=== PATIENT | male | born 1935 | race Caucasian/White ===

== ENCOUNTER 2025-02-22 12:53 | Inpatient (IN) | payer OTHER, MEDICARE ==
[~2025-02-22] VITALS: Ht 182.9 cm; Wt 78.9 kg
[2025-02-22] VITALS (12 sets, daily range): BP systolic 91–174; BP diastolic 60–91
[2025-02-22 13:16] LABS: Calcium, Ionized (POC) 1.01 mmol/L (1.10-1.46); Chloride (POC) 105 mmol/L (98-108); Creatinine (POC) 2.4 mg/dL (0.8-1.3); Glucose (ISTAT POC) 285 mg/dL (70-99); Hemoglobin (POC) 13.3 g/dL (13.5-17.5); Potassium (POC) 3.5 mmol/L (3.5-5.5); Sodium (POC) 141 mmol/L (135-148); Total CO2 (POC) 22 mmol/L (21-32)
[2025-02-22] MEDS ORDERED: propofoL 100 ML IV SCH (13:20)
[2025-02-22] MEDS ORDERED: FentaNYL Citrate 50 MCG/ML 2 ML Injection IV SCH (13:20)
[2025-02-22 13:28] LABS: Hematocrit 40.3 % (37.0-53.0); Hemoglobin 13.2 g/dL (13.5-17.5); Mean Corpuscular HGB Conc 32.8 g/dL (31.5-36.5); Mean Corpuscular Volume 98 fL (80-100); Mean Platelet Volume 12.9 fL (9.1-12.4); Platelet Count 168 K/mm3 (150-400); RDW Standard Deviation 46.7 fL (35.1-46.3); Red Blood Cell Count 4.12 M/mm3 (4.30-5.90); White Blood Cell Count 23.91 K/mm3 (4.00-11.30)
[2025-02-22] MEDS ORDERED: Aspirin 300 MG Supp PR ONE (13:30)
[2025-02-22] MEDS ORDERED: Heparin Sodium 1000 Units/ML 10ML MDV ONE ×2 (13:35→14:18)
[2025-02-22] MEDS ORDERED: NS 250 ML IV ONE (13:35)
[2025-02-22] MEDS ORDERED: NS 1,000 ML IV ONE ×2 (13:35→13:43)
[2025-02-22] MEDS ORDERED: Verapamil HCL 2.5 MG/ML 2ML Injection ONE (13:36)
[2025-02-22] MEDS ORDERED: Nitroglycerin 2 MG/20 ML BTL ONE (13:36)
[2025-02-22 13:43] LABS: International Normalized Ratio 1.13
[2025-02-22] MEDS ORDERED: Atropine Sulfate 0.1 MG/ML 10ML SYR ONE (13:43)
[2025-02-22] MEDS ORDERED: FentaNYL Citrate 50 MCG/ML 2 ML Injection ONE (13:43)
[2025-02-22] MEDS ORDERED: Phenylephrine HCl 100 MCG/ML-NS 10MLSYR (1MG/10ML) ONE (13:43)
[2025-02-22] MEDS ORDERED: Midazolam HCl 1MG / ML 2ML Vial ONE (13:43)
[2025-02-22 13:49] LABS: Alanine Aminotransfer (ALT/SGP 127 U/L (12-78); Albumin, Blood 3.2 g/dL (3.4-5.0); Albumin/Globulin Ratio 1.1 (0.8-1.8); Alk Phos 119 U/L (50-136); Anion Gap 19 mmol/L (3-11); Aspartate Aminotrans (AST/SGOT 139 U/L (12-37); Bilirubin, Total 0.4 mg/dL (0.1-1.0); Blood Urea Nitrogen 27 mg/dL (8-24); Bun/Creatinine Ratio 13.3 (12.0-20.0); CO2, Blood 21 mmol/L (21-32); Calcium, Blood 8.4 mg/dL (8.5-10.1); Chloride, Blood 104 mmol/L (98-108); Creatinine, Blood 2.03 mg/dL (0.60-1.20); Ethanol (Alcohol), Blood, Med <3 mg/dL; Globulin, Blood 2.9 g/dL (2.2-4.0); Glomerular Filtration Rate 31 (60-); Glucose, Blood 294 mg/dL (70-99); Potassium, Blood 3.3 mmol/L (3.5-5.5); Sodium, Blood 141 mmol/L (136-145); Total Protein, Blood 6.1 g/dL (6.4-8.2)
[2025-02-22] MEDS ORDERED: propofoL 50 ML IV ONE (13:52)
[2025-02-22 15:16] LABS: BAND PERCENT MAN 9 % (0-8); BASOPHILS ABSOLUTE MAN 0.23 K/mm3 (0.00-0.23); BASOPHILS PERCENT MAN 1 % (0-2); EOSINOPHILS PERCENT MAN 0 % (0-6); LYMPHOCYTES ABSOLUTE MAN 9.56 K/mm3 (0.84-5.20); LYMPHOCYTES PERCENT MAN 40 % (21-46); METAMYELOCYTE ABSOLUTE MAN 0.23 K/mm3 (0.00-0.00); METAMYELOCYTE PERCENT MAN 1 % (0-0); MONOCYTES ABSOLUTE MAN 0.23 K/mm3 (0.16-1.47); MONOCYTES PERCENT MAN 1 % (4-13); MYELOCYTE ABSOLUTE MAN 0.47 K/mm3 (0.00-0.00); MYELOCYTE PERCENT MAN 2 % (0-0); NEUTROPHILS ABSOLUTE MAN 13.15 K/mm3 (1.96-9.15); SEG NEUTROPHILS PERCENT MAN 46 % (41-73); TOTAL CELLS COUNTED 100
[2025-02-22] MEDS ORDERED: Ondansetron HCl 2 MG / ML 2ML Vial IV PRN (15:55)
[2025-02-22] MEDS ORDERED: Hydrogen Peroxide 1.5 % Solution MT SCH (16:00)
[2025-02-22] MEDS ORDERED: Potassium Chloride 20 MEQ/15 ML UDC PO ONE (16:10)
[2025-02-22] MEDS ORDERED: Ampicillin Sod/Sulbactam Sod 3 GM in NS 100 ML IV SCH (17:00)
[2025-02-22] MEDS ORDERED: Furosemide 10 MG / ML 2ML Vial IV ONE (17:05)
[2025-02-22 17:13] LABS: Base Excess Venous 0 mmol/L; Bicarbonate Venous 24.2 mmol/L (24.0-30.0); PCO2 Venous 42.4 mmHg (38-42); pH Blood Venous 7.38 (7.34-7.37)
[2025-02-22] MEDS ORDERED: Dose Adjust by Pharmacy XX STA (17:44)
[2025-02-22] MEDS ORDERED: Heparin Sodium 5000 Units/ML 1ML MDV IV ONE (17:45)
[2025-02-22] MEDS ORDERED: Heparin Sodium,Porcine/0.5 NS 500 ML IV SCH (17:45)
[2025-02-22] MEDS ORDERED: Insulin Regular 100 UNIT/ML 10ML Vial SC SCH (18:00)
[2025-02-22 18:19] LABS: Calcium, Blood 8.4 mg/dL (8.5-10.1); Creatinine, Blood 1.87 mg/dL (0.60-1.20); Magnesium, Blood 2.4 mg/dL (1.6-2.4); Phosphorus, Blood 3.2 mg/dL (2.5-4.9); Potassium, Blood 3.9 mmol/L (3.5-5.5)
--- NOTE | 2025-02-22 19:15 | NUR ---
LACTIC ACID 7.2 AND ROVING EYE MOVEMENTS COMMUNICATED TO DR. GRAY. PUPILS STILL REACTIVE, GAG/COUGH INTACT. POSTURING MOVEMENTS ONLY. PIV X2. ETT INTACT. THURSTON TO GRAVITY. HEPARIN GTT INFUSING. PROPOFOL GTT INFUSING.
--- NOTE | 2025-02-22 19:19 | NUR ---
JEWELRY - RINGS X2, CAR COHEN, COVERALLS, SHIRT, UNDERWEAR SENT HOME WITH .
[2025-02-22] MEDS ORDERED: Cetylpyridinium Chloride 1 EA MISC MT SCH (20:00)
[2025-02-22 20:53] LABS: Source, Urine Clean Catch
[2025-02-22 21:10] LABS: Appearance, Urine Clear (Clear); Bilirubin, Urine Neg (Neg); Blood, Urine 4+ (Neg); Glucose Qualitative, Urine 4+ (Neg); Ketones, Urine Neg (Neg); Leukocyte Esterase, Urine Neg (Neg); Nitrite, Urine Neg (Neg); Protein, Urine 1+ (Neg); Specific Gravity, Urine 1.015 (1.003-1.022); Urobilinogen, Urine NORM (Normal)
[2025-02-22 21:18] LABS: Color, Urine Pale Yellow (P-Yellow); Squamous Epithelial Cells Few /hpf (Few)
[2025-02-22 21:19] LABS: Bacteria Few /hpf
[2025-02-22 21:20] LABS: Renal Epithelial Rare /hpf (0-Rare)
[2025-02-22 21:29] LABS: U Amphetamine Screen Not Detected; U Barbituate Screen Not Detected; U Benzodiazapine Screen Not Detected; U Buprenorphine Screen Not Detected; U Cannabinoids Screen Not Detected; U Cocaine Screen Not Detected; U Methadone Screen Not Detected; U Methamphetamine Screen Not Detected; U Opiates Screen Not Detected; U Oxycodone Screen Not Detected; U Phencyclidine Screen Not Detected
[2025-02-22 21:56] LABS: Influenza A, PCR NEGATIVE (NEGATIVE); Influenza B, PCR NEGATIVE (NEGATIVE); Resp Syncytial Virus, PCR NEGATIVE (NEGATIVE); SARS-Cov-2 (COVID-19) PCR, MMC NEGATIVE (NEGATIVE)
[2025-02-22] MEDS ORDERED: Acetaminophen 160MG / 5ML 10.15 UDC PT PRN (22:50)
[2025-02-22] MEDS ORDERED: Acetaminophen 160MG / 5ML 10.15 UDC PT ONE (22:50)
[2025-02-22] MEDS ORDERED: NS 250 ML IV PRN (23:05)
[2025-02-23] VITALS (68 sets, daily range): BP systolic 99–147; BP diastolic 46–97
[2025-02-23] MEDS ORDERED: Ampicillin Sod/Sulbactam Sod 3 GM in NS 100 ML IV SCH
[2025-02-23] MEDS ORDERED: Dose Adjust by Pharmacy XX STA ×2 (01:44→10:29)
[2025-02-23 03:53] LABS: BASOPHILS ABSOLUTE AUTO 0.06 K/mm3 (0.00-0.23); BASOPHILS PERCENT AUTO 0 % (0-2); EOSINOPHILS PERCENT AUTO 0 % (0-6); Hematocrit 45.9 % (37.0-53.0); Hemoglobin 15.5 g/dL (13.5-17.5); IMMATURE GRAN ABSOLUTE AUTO 0.13 K/mm3 (0.00-0.10); IMMATURE GRAN PERCENT AUTO 1 % (0-1); LYMPHOCYTES ABSOLUTE AUTO 1.56 K/mm3 (0.84-5.20); LYMPHOCYTES PERCENT AUTO 7 % (21-46); MONOCYTES ABSOLUTE AUTO 2.32 K/mm3 (0.16-1.47); MONOCYTES PERCENT AUTO 10 % (4-13); Mean Corpuscular HGB 31.8 pg (26.0-34.0); Mean Corpuscular HGB Conc 33.8 g/dL (31.5-36.5); Mean Corpuscular Volume 94 fL (80-100); Mean Platelet Volume 12.3 fL (9.1-12.4); NEUTROPHILS ABSOLUTE AUTO 19.23 K/mm3 (1.96-9.15); NEUTROPHILS PERCENT AUTO 82 % (41-73); Platelet Count 148 K/mm3 (150-400); RDW Coefficient Variation 13.2 % (11.7-14.2); Red Blood Cell Count 4.87 M/mm3 (4.30-5.90)
[2025-02-23 03:56] LABS: Acinetobacter baumannii DNA Not Detected copy/mL (NOT DETECT); Adenovirus DNA Not Detected (NOT DETECT); Chlamydia pneumonia Not Detected (NOT DETECT); Enterobacter cloacae DNA Not Detected copy/mL (NOT DETECT); Escherichia coli DNA Not Detected copy/mL (NOT DETECT); Haemophilus influenzae DNA Not Detected copy/mL (NOT DETECT); Human Coronavirus RNA Not Detected (NOT DETECT); Human Metapneumovirus RNA Not Detected (NOT DETECT); Influenza virus A RNA Not Detected (NOT DETECT); Influenza virus B RNA Not Detected (NOT DETECT); Klebsiella aerogenes DNA Not Detected copy/mL (NOT DETECT); Klebsiella oxytoca DNA Not Detected copy/mL (NOT DETECT); Klebsiella pneumoniae DNA Not Detected copy/mL (NOT DETECT); Legionella pneumophila Not Detected (NOT DETECT); Moraxella catarrhalis DNA Not Detected copy/mL (NOT DETECT); Mycoplasma pneumoniae Not Detected (NOT DETECT); Parainfluenza virus RNA Not Detected (NOT DETECT); Proteus sp DNA Not Detected copy/mL (NOT DETECT); Pseudomonas aeruginosa DNA Not Detected copy/mL (NOT DETECT); Respiratory syncytial Vir RNA Not Detected (NOT DETECT); Rhinovirus+Enterovirus RNA Not Detected (NOT DETECT); Serratia marcescens DNA Not Detected copy/mL (NOT DETECT); Staphylococcus aureus DNA Not Detected copy/mL (NOT DETECT); Streptococcus agalactiae DNA Not Detected copy/mL (NOT DETECT); Streptococcus pneumoniae DNA Not Detected copy/mL (NOT DETECT); Streptococcus pyogenes DNA Not Detected copy/mL (NOT DETECT)
[2025-02-23 06:02] LABS: Albumin, Blood 3.4 g/dL (3.4-5.0); Albumin/Globulin Ratio 0.9 (0.8-1.8); Bilirubin, Total 0.6 mg/dL (0.1-1.0); Bun/Creatinine Ratio 18.4 (12.0-20.0); Calcium, Blood 8.5 mg/dL (8.5-10.1); Creatinine, Blood 1.74 mg/dL (0.60-1.20); Globulin, Blood 3.7 g/dL (2.2-4.0); Magnesium, Blood 2.5 mg/dL (1.6-2.4); Potassium, Blood 4.8 mmol/L (3.5-5.5); Total Protein, Blood 7.1 g/dL (6.4-8.2)
--- NOTE | 2025-02-23 06:24 | NUR ---
SHIFT SUMMARY PATIENT IS INTUBATED AND SEDATED ON PROPOFOL MOST THE NIGHT, POSTURING CONSTANTLY AT START OF SHIFT WITH ROVING EYE MOVEMENTS. PROPOFOL TITRATED OFF THIS AM, MINIMAL TO NO POSTURING AT REST. COUGH AND GAG PRESENT, PUPILS REACTIVE, NO PURPOSEFUL MOVEMENT. SP02 99% ON VENT AC VC 16/450/5/40%, SUCTIONING BRIGHT RED SPUTUM FROM ETT, SPUTUM SAMPLE SENT. HR SR 60s, BP STABLE. TEMP THURSTON PATENT AND DRAINING TO GRAVITY. TMAX 100.2, COOLING BLANKET, ICE PACKS AND FAN, WELL TYELON PER EMAR. TEMP NOW 99.0, COOLING BLANKET OFF. PATIENT REPOSITIONED Q2 HOURS.
--- NOTE | 2025-02-23 06:37 | NUR ---
TR BAND IN PLACE LAST NIGHT, DEFLATED AND LEFT ON FOR 1 HOUR, NO BLEEDING OR HEMATOMA. TR BAND REMOVED AT APPROX 2230, TEGADERM IN PLACE WITH ARM BOARD. SITE WNL
--- NOTE | 2025-02-23 07:08 | NUR ---
ASSUMED CARE OF PATIENT AT APPROXIMATELY 0700. BEDSIDE REPORT RECEIVED FROM SHOBHA HARDEN. PT INTUBATED, PROPOFOL ON SB SINCE APPROXIMATELY 0611 PER NOC SHIFT NURSE. PT NOT FOLLOWING COMMANDS OR MAKING PURPOSEFUL MOVEMENTS. MINIMAL POSTURING OBSERVED. CONTINUOUS CARDIAC MONITORING IN PLACE SHOWS SR, BP STABLE c MAP > 65. VENT SETTINGS A/C VC 16/460/5/40%. O2 SATURATION 100%. OGT CLAMPED. TEMP THURSTON PATENT AND DRAINING TO GRAVITY. R RADIAL ACCESS DRESSING c MINIMAL OOZING, SITE SOFT c NO HEMATOMA. SEE SHIFT ASSESSMENT FOR FULL DETAILS.
[2025-02-23] MEDS ORDERED: Heparin Sodium,Porcine 5,000 UNIT/0.5 ML SDV SC SCH (09:00)
[2025-02-23] MEDS ORDERED: Pantoprazole Sodium 40 MG Injection IV SCH (09:00)
[2025-02-23] MEDS ORDERED: Amiodarone HCl 200 MG Tab PO SCH (09:00)
[2025-02-23] MEDS ORDERED: Metoprolol Succinate 25 MG TABCR PO SCH (09:00)
--- NOTE | 2025-02-23 16:30 | NUR ---
TACHYCARDIA AT APPROXIMATELY 1630 PT BECAME TACHYCARDIC c HR IN 120'S AND TACHYPNEIC, FIGHTING VENT. DR. CASAREZ AT BEDSIDE, PT HR EVENTUALLY DECREASED TO 70'S-80'S, BREATING RETURNED TO RATE OF 16-18. DR. CASAREZ INFORMED OF EEG PENDING AT 1700. PER DR[address] CASAREZ, WILL AWAIT EEG AND CONTINUE TO MONITOR. METOPROLOL HELD THIS AM (SEE EMAR) AND NEW ORDER FOR BID METOPROLOL DOSING ORDERED.
[2025-02-23] MEDS ORDERED: Bisacodyl 10 MG Supp PR PRN (18:30)
[2025-02-23] MEDS ORDERED: Docusate Sodium Liquid 100 MG UDC PT PRN (18:30)
[2025-02-23] MEDS ORDERED: Magnesium Hydroxide Conc 10 ML UDC PT PRN (18:30)
[2025-02-23] MEDS ORDERED: Apixaban 5 MG Tab PO SCH (21:00)
[2025-02-23] MEDS ORDERED: Metoprolol Tartrate 25 MG Tab PO SCH (21:00)
[2025-02-24] VITALS (81 sets, daily range): BP systolic 98–189; BP diastolic 49–91
[2025-02-24 03:34] LABS: BASOPHILS ABSOLUTE AUTO 0.05 K/mm3 (0.00-0.23); BASOPHILS PERCENT AUTO 0 % (0-2); EOSINOPHILS PERCENT AUTO 0 % (0-6); Hematocrit 36.3 % (37.0-53.0); IMMATURE GRAN ABSOLUTE AUTO 0.11 K/mm3 (0.00-0.10); IMMATURE GRAN PERCENT AUTO 1 % (0-1); LYMPHOCYTES PERCENT AUTO 7 % (21-46); MONOCYTES ABSOLUTE AUTO 1.36 K/mm3 (0.16-1.47); MONOCYTES PERCENT AUTO 8 % (4-13); Mean Corpuscular HGB 32.1 pg (26.0-34.0); Mean Corpuscular HGB Conc 33.1 g/dL (31.5-36.5); Mean Corpuscular Volume 97 fL (80-100); Mean Platelet Volume 12.9 fL (9.1-12.4); NEUTROPHILS ABSOLUTE AUTO 15.04 K/mm3 (1.96-9.15); NEUTROPHILS PERCENT AUTO 84 % (41-73); Platelet Count 152 K/mm3 (150-400); RDW Coefficient Variation 13.6 % (11.7-14.2); RDW Standard Deviation 48.5 fL (35.1-46.3); Red Blood Cell Count 3.74 M/mm3 (4.30-5.90); White Blood Cell Count 17.86 K/mm3 (4.00-11.30)
--- NOTE | 2025-02-24 05:17 | NUR ---
NOC SHIFT SUMMARY NO ACUTE EVENTS OVERNIGHT. PT OPENS EYES AND STARTLES TO VERBAL/PAINFUL STIMULI. NO PURPOSEFUL MOVEMENT. PT LUNGS CLEAR/DIM- VENT SETTINGS UNCHANGED DURING SHIFT, REMAIN 16/460/5/40%. O2 SATS 99%. PT IS NSR RATE OF 72. BP STABLE. TMAX OF 100.3- ICE PACKS, FAN, AND COOLING BLANKET APPLIED TO PT. GOOD URINE OUTPUT VIA WICKING SYSTEM- MOISES COLORED URINE. NO BM THIS SHIFT. R. RADIAL SITE CLEAN/DRY/INTACT. NO HEMATOMA OR OOZING OBSERVED. PT REMAINS IN BILAT UPPER WRIST RESTRAINTS. TUBE FEEDING RUNNING AT GOAL RATE OF 55ML/HR. PLAN OF CARE ONGOING.
[2025-02-24 05:24] LABS: Albumin/Globulin Ratio 0.9 (0.8-1.8); Bilirubin, Total 0.5 mg/dL (0.1-1.0); Bun/Creatinine Ratio 21.4 (12.0-20.0); Calcium, Blood 8.4 mg/dL (8.5-10.1); Creatinine, Blood 1.68 mg/dL (0.60-1.20); Globulin, Blood 3.3 g/dL (2.2-4.0); Magnesium, Blood 2.6 mg/dL (1.6-2.4); Phosphorus, Blood 3.1 mg/dL (2.5-4.9); Potassium, Blood 4.3 mmol/L (3.5-5.5); Total Protein, Blood 6.3 g/dL (6.4-8.2)
[2025-02-24] MEDS ORDERED: FentaNYL Citrate 50 MCG/ML 2 ML Injection IV PRN (06:00)
[2025-02-24] MEDS ORDERED: Clopidogrel Bisulfate 75 MG Tab PO SCH (09:00)
--- NOTE | 2025-02-24 11:02 | NUR ---
ASSUMED CARE OF PATIENT AT APPROXIMATELY 0700. BEDSIDE REPORT RECEIVED FROM SHOBHA HOLM. PT INTUBATED AND OFF OF SEDATION. CONTINUOUS CARDIAC MONITORING IN PLACE SHOWS SR, BP STABLE. VENTILATED c O2 SATURATIONS > 92%. TEMP THURSTON PATENT AND DRAINING TO GRAVITY. SEE SHIFT ASSESSMENT FOR FULL DETAILS.
[2025-02-24] MEDS ORDERED: Aspirin 81 MG Chew PT SCH (14:00)
[2025-02-24] MEDS ORDERED: Metoprolol Tartrate 1 MG/ML 5 ML VIAL IV STA (14:54)
[2025-02-24] MEDS ORDERED: Metoprolol Tartrate 25 MG Tab PT ONE (15:00)
--- NOTE | 2025-02-24 17:51 | NUR ---
SHIFT SUMMARY PT REMAINED INTUBATED AND OFF OF SEDATION T/O ENTIRETY OF SHIFT. NOT FOLLOWING COMMANDS OR MAKING PURPOSEFUL MOVEMENTS. DOES LOCALIZE PAINFUL/NOXIOUS STIMULI. TMAX 998, ICE PACKS APPLIED AND TYLENOL GIVEN. CONTINUOUS CARDIAC MONITORING IN PLACE SHOWS SR. BP CONVERTED TO AFIB AT APPROXIMATELY 1500, HR SUSTAINING 130'S. IV LOPRESSOR ORDERED PER DR. CASAREZ PLUS ADDITIONAL PO DOSE. HR DECREASED TO 90'S-100'S. AT APPROXIMATELY 1730 PT CONVERTED BACK TO SR WITH HR IN 60'S-70'S. BP STABLE c MAP > 65. VENT SETTINGS A/C VC 16/460/5/30% c O2 SATURATIONS > 92%. SMALL ORAL AND INLINE SECRETIONS, CLEAR AND FOAMY. NO BM THIS SHIFT. TF INCREASED TO GOAL RATE OF 55mL/HR. TEMP THURSTON PATENT AND REMAINING TO GRAVITY. CT COMPLETED THIS AM. UPDATED AT BEDSIDE. WILL CONTINUE TO MONITOR AND REPORT TO ONCOMING RN.
--- NOTE | 2025-02-24 19:27 | NUR ---
ASSUMPTION OF CARE REPORT RECIEVED FROM DAY SHIFT NURSE. FAMILY IN ROOM AT BEDSIDE AT THIS TIME. FAMILY DOES NOT STATE ANY QUESTIONS AT THIS TIME. PT IS RESPONSIVE TO PAINFUL STIMULI ON BILATERAL LOWER EXTREMETIES. PUPILS ARE EQUAL AND REACTIVE. VITAL SIGNS ARE STABLE. FAMILY ASKS ABOUT VISITORS POLICY, THIS NURSE INFORMS THEM THAT QUIET HOURS BEGIN AT 8. FAMILY APPEARS RECEPTIVE TO THIS INFORMATION. WILL CONTINUE TO MONITOR PT.
[2025-02-24] MEDS ORDERED: Lactobacil 2-S.Thermo-Bifido 1 1 Cap PO SCH (21:00)
[2025-02-24] MEDS ORDERED: Metoprolol Tartrate 25 MG Tab PT SCH (21:00)
[2025-02-25] VITALS (68 sets, daily range): BP systolic 127–172; BP diastolic 51–116
[2025-02-25 03:39] LABS: BASOPHILS ABSOLUTE AUTO 0.05 K/mm3 (0.00-0.23); BASOPHILS PERCENT AUTO 0 % (0-2); EOSINOPHILS ABSOLUTE AUTO 0.01 K/mm3 (0.00-0.68); EOSINOPHILS PERCENT AUTO 0 % (0-6); Hematocrit 36.5 % (37.0-53.0); Hemoglobin 11.4 g/dL (13.5-17.5); IMMATURE GRAN ABSOLUTE AUTO 0.14 K/mm3 (0.00-0.10); IMMATURE GRAN PERCENT AUTO 1 % (0-1); LYMPHOCYTES ABSOLUTE AUTO 2.14 K/mm3 (0.84-5.20); LYMPHOCYTES PERCENT AUTO 12 % (21-46); MONOCYTES ABSOLUTE AUTO 1.84 K/mm3 (0.16-1.47); MONOCYTES PERCENT AUTO 10 % (4-13); Mean Corpuscular HGB 30.6 pg (26.0-34.0); Mean Corpuscular HGB Conc 31.2 g/dL (31.5-36.5); Mean Corpuscular Volume 98 fL (80-100); NEUTROPHILS ABSOLUTE AUTO 13.98 K/mm3 (1.96-9.15); NEUTROPHILS PERCENT AUTO 77 % (41-73); Platelet Count 138 K/mm3 (150-400); RDW Coefficient Variation 13.7 % (11.7-14.2); RDW Standard Deviation 49.4 fL (35.1-46.3); Red Blood Cell Count 3.72 M/mm3 (4.30-5.90); White Blood Cell Count 18.16 K/mm3 (4.00-11.30)
[2025-02-25 03:40] LABS: Mean Platelet Volume 13.1 fL (9.1-12.4)
[2025-02-25 03:59] LABS: Bun/Creatinine Ratio 27.5 (12.0-20.0); Calcium, Blood 8.4 mg/dL (8.5-10.1); Creatinine, Blood 1.49 mg/dL (0.60-1.20); Magnesium, Blood 2.8 mg/dL (1.6-2.4); Potassium, Blood 3.7 mmol/L (3.5-5.5)
--- NOTE | 2025-02-25 05:58 | NUR ---
SHIFT SUMMARY PT HAS HAD NO CHANGES IN STATUS THROUGHOUT TRAVEL REGISTERED NURSE ICU. PT REMAINS RESPONSIVE TO PAINFUL STIMULI AND UNABLE TO FOLLOW COMMANDS. PT IS NOT SEDATED AT THIS TIME. VENT SETTINGS HAVE NOT CHANGED THROUGH NIGHT. WILL CONTINUE TO MONITOR UNTIL REPORT PASSED TO DAY SHIFT TEAM.
[2025-02-25] MEDS ORDERED: Levothyroxine Sodium 0.1 MG Tab PO SCH (06:00)
[2025-02-25] MEDS ORDERED: Protein Supplement 30 ML UD PT SCH (09:00)
--- NOTE | 2025-02-25 11:54 | NUR ---
REASSESSMENT PT REMAINS INTUBATED, OFF SEDATION. HE OPENS EYES SPONTANEOUSLY, BUT DOES NOT TRACK. MOVES ARMS AND LEGS TO PAINFUL STIMULI. NOT FOLLOWING ANY COMMANDS. HE HAD FINE TREMORS IN HIS ARMS AND LEGS THIS MORNING. ARMS WERE STIFF, BUT PT STILL HAD RESPONSES TO PAINFUL STIMULI, ALTHOUGH LESS THAN ONCE TREMORS STOPPED. PUPILS REMAIN REACTIVE. LUNGS CLEAR. SR, MAP 84. THURSTON DRAINING LIGHT YELLOW URINE. MULTIPLE FAMILY MEMBERS VISITED THIS MORNING INCLUDING PT'S AND HIS CHILDREN. THEY WERE UPDATED BY NURSING STAFF AND DR. CASAREZ. HAS LEFT, BUT STATES SHE WOULD LIKE TO CONTINUE CARE FOR ANOTHER 1-2 DAYS TO SEE IF PT HAS ANY IMPROVEMENTS.
--- NOTE | 2025-02-25 17:39 | NUR ---
SHIFT SUMMARY PT REMAINS INTUBATED AND OFF SEDATION. HE HAS NOT FOLLOWED ANY COMMANDS. WILL RESPOND TO PAIN WITH ALL EXTREMITIES. LUNGS ARE CLEAR. SMALL AMT OF THICK WHTIE SPUTUM SUCTIONED FROM ETT THIS EVENING. SR, MAP 89. TUBE FEED INFUSING AT GOAL WITHOUT SIGNS OF INTOLERANCE. THURSTON DRAINING CL YELLOW URINE.
[2025-02-26] VITALS (10 sets, daily range): BP systolic 137–192; BP diastolic 55–122
--- NOTE | 2025-02-26 05:41 | NUR ---
SHIFT SUMMERY PT HAS HAD INCREASING AGITATION OVERNIGHT W/INCREASING STRENGTH AND ACTIVITY WELL. PT WAS FOUND TO HAVE HIS FEEDING TUBE COILED IN HIS MOUTH. RT Kameron ADAME WAS CALLED AND SHE CAME TO BEDSIDE TO ASSIST ME IN REMOVING W/OUT DISTURBING ETT PLACEMENT. WHILE I WAS REMOVING THE OG TUBE THE PT BIT ME. DR HERRERA WAS NOTIFIED AND DIRECTION WAS GIVEN TO LEAVE THE TUBE OUT FOR NOW. PT ALSO REACHED UP AND GRABBED HIS ETT. MD ORDER WAS PLACED FOR SOFT WRIST RESTRAINTS. PT HAS NOT FOLLOWED COMMANDS. HE DOES OPEN HIS EYES BUT HE HAS NOT TRACKED MY MOVEMENT THIS SHIFT. PT HAS BEEN AFEBRILE. SR ON THE INVESTIGATOR VICE. BP WNL. OXYGEN SAT >92% W/ETT INTACT AND PATENT TO THE VENT. THURSTON CATHETER INTACT PATENT AND DRAINING TO GRAVITY.
[2025-02-26 06:20] LABS: BASOPHILS ABSOLUTE AUTO 0.06 K/mm3 (0.00-0.23); BASOPHILS PERCENT AUTO 0 % (0-2); EOSINOPHILS ABSOLUTE AUTO 0.02 K/mm3 (0.00-0.68); EOSINOPHILS PERCENT AUTO 0 % (0-6); Hematocrit 31.9 % (37.0-53.0); Hemoglobin 10.3 g/dL (13.5-17.5); IMMATURE GRAN ABSOLUTE AUTO 0.13 K/mm3 (0.00-0.10); IMMATURE GRAN PERCENT AUTO 1 % (0-1); LYMPHOCYTES ABSOLUTE AUTO 1.55 K/mm3 (0.84-5.20); LYMPHOCYTES PERCENT AUTO 12 % (21-46); MONOCYTES ABSOLUTE AUTO 1.11 K/mm3 (0.16-1.47); MONOCYTES PERCENT AUTO 8 % (4-13); Mean Corpuscular HGB 31.2 pg (26.0-34.0); Mean Corpuscular HGB Conc 32.3 g/dL (31.5-36.5); Mean Corpuscular Volume 97 fL (80-100); Mean Platelet Volume 12.6 fL (9.1-12.4); NEUTROPHILS ABSOLUTE AUTO 10.48 K/mm3 (1.96-9.15); NEUTROPHILS PERCENT AUTO 79 % (41-73); Platelet Count 148 K/mm3 (150-400); RDW Coefficient Variation 13.7 % (11.7-14.2); RDW Standard Deviation 48.8 fL (35.1-46.3); White Blood Cell Count 13.35 K/mm3 (4.00-11.30)
[2025-02-26 06:45] LABS: Bun/Creatinine Ratio 25.4 (12.0-20.0); Calcium, Blood 8.7 mg/dL (8.5-10.1); Creatinine, Blood 1.42 mg/dL (0.60-1.20); Potassium, Blood 4.1 mmol/L (3.5-5.5)
--- NOTE | 2025-02-26 08:37 | NUR ---
THIS RN ASSUMED CARE OF PT AT 0740. PT HEART RATE IN THE 60-70s, BLOOD PRESSURE ELEVATED AT 178/63, PT ON NO SEDATION CURRENTLY. PT SOUNDS CLEAR/DIMINISHED, ON THE VENTILATOR 16/460/30%/5, PT SATTING >95%. PT NO LONGER HAS AN OG TUBE, WAITING FOR TO SEE PT AND SEE IF HE WOULD LIKE US TO REPLACE. PT HAS THURSTON DRAINING TO GRAVITY. PLAN WAS PT FAMILY WANTED TO WAIT AND SEE IF PT WOULD GET BETTER OVER NEXT COUPLE DAYS, PT IS STARTING TO MOVE, LOCALIZES TO PAIN, WAS GRABBING AT TUBE OTHER DAY PER OTHER RN. NO OTHER INTERVENTIONS AT THIS TIME. PLAN OF CARE CONTINUED.
[2025-02-26] MEDS ORDERED: Apixaban 5 MG Tab PO SCH (09:00)
[2025-02-26] MEDS ORDERED: Atropine Sulfate 1% Opth Soln 2ML BTL SL PRN (11:00)
[2025-02-26] MEDS ORDERED: LORazepam 2 MG/ML 1ML Injection IV PRN (11:00)
[2025-02-26] MEDS ORDERED: Scopolamine Hydrobromide Patch TOP PRN (11:00)
[2025-02-26] MEDS ORDERED: Morphine Sulfate 20 MG/1ML 1 ML Oral Syringe SL PRN (11:00)
--- NOTE | 2025-02-26 11:07 | NUR ---
PT UPDATE: AFTER A LONG DISCUSSION WITH FAMILY, AND WERE AT BEDSIDE AND FAMILY DECIDED THAT PT WOULD NOT WANT US TO KEEP GOING AND WANTED TO PALLIATIVELY EXTUBATE TO COMFORT CARE. ORDERS ARE BEING PUT IN, WILL LET RT KNOW WHEN PT IS READY TO BE EXTUBATED. NO OTHER INTERVENTIONS AT THIS TIME. PLAN OF CARE CONTINUED.
--- NOTE | 2025-02-26 12:00 | NUR ---
PT UPDATED: PT EXTUBATED TO COMFORT CARE AT 1123, MEDS HAVE BEEN ORDERED AND GIVEN FOR COMFORT, FAMILY IS AWARE.
--- NOTE | 2025-02-27 00:49 | NUR ---
TOOK REPORT FROM TRICIA YEAGER ICU 13
--- NOTE | 2025-02-27 00:55 | NUR ---
Transfer summary Report called to Kranthi Hollis, pt transferred to room 228
--- NOTE | 2025-02-27 01:11 | NUR ---
PT ARRIVED ON UNIT @ 0100 AND CARE ASSUMED.
--- NOTE | 2025-02-27 05:31 | NUR ---
SHIFT SUMMARY NOC PT A/O X 0. CATATONIC. TRANSFER FROM ICU 13 DAY 1 POST EXTUBATION FROM CARDIAC ARREST ON 02/22/25. DURING INITIAL COMFORT CARE ASSESSMENT PT LUNG SOUNDS ARE COARSE AND WET, SCOPALOMINE PATCH PLACED BEHIND L EAR, AND WALL SUCTION SET UP. PT GIVEN DOSE OF ROXANOL FOR AIR HUNGER. PT HAS THURSTON IN PLACE DRAINING YELLOW URINE TO GRAVITY. BILATERAL FOREARM IV PATENT AND DRESSING CHANGED C/D/I. HEEL PROTECTORS IN PLACE. AND Q2H TURNS. PT CURRENTLY RESTING WITH BED ALARM ON, BED IN LOWEST POSITION, AND CALL LIGHT WITHIN REACH.
--- NOTE | 2025-02-27 10:58 | NUR ---
SPOUSE BEDSIDE. CARE MANAGEMENT IN TO SEE SPOUSE. PT RESTING WITH EYES CLOSED.
--- NOTE | 2025-02-27 13:54 | NUR ---
DARREN/PALLIATIVE CARE IN TO SEE PT.
--- NOTE | 2025-02-27 17:26 | NUR ---
SUMMARY NO ACUTE CHANGES T/O SHIFT. MEDICATED PT PER ORDERS FOR PAIN/AIR HUNGER AND SECRETIONS. REPOSITIONED TO L SIDE TO LESSEN SECRETION DISCOMFORT. PT RESTING W/EYES CLOSED AT THIS TIME. BREATHING E/U. BED ALARM ON FOR SAFETY. CALL LIGHT IN REACH.
--- NOTE | 2025-02-27 23:12 | NUR ---
FAMILY UPDATE PT'S DAUGHTER, VIKKI CALLED FOR UPDATE ON PATIENT'S STATUS. CONFIRMED PATIENT HAS APPEARED COMFORTABLE SINCE ASSUMING CARE- NO SX OF DISCOMFORT OR CHANGE. FAMILY ASSURED PROPER CARE HAS BEEN PROVIDED AND WILL CONTINUE TO BE WHILE PT IS AT HOSPITAL. VIKKI HAD QUESTIONS MOST APPROPRIATE FOR THE PALLATIVE CARE TEAM. WILL LEAVE MESSAGE FOR PALLATIVE CARE TO CONTACT HER WHEN AVAILABLE. REASSURANCE PROVIDED AND VIKKI VERBALIZED UNDERSTANDING AND DENIED ANY FUTHER CONCERS. DAUGHTER ENCOURAGED TO CALL IF FURTHER CONCERNS ARISE. CHARGE AWARE
--- NOTE | 2025-02-28 06:01 | NUR ---
SHIFT SUMMARY NO ACUTE CHANGES TONIGHT. NO SX OF DISTRESS OR PAIN. PT APPEARED RELAXED T/O ENTIRE SHIFT, EYES CLOSED AND RESP EVEN/UNLABORED. NO SIGNS OF AIR HUNGER OR INCREASED SECRETION. BODY RELAXED. Q2 TURNS AND CATH CARE BY FACILITY REHAB DIRECTOR. 750ML OUT OF THURSTON. PT UNRESPONSIVE T/O NIGHT. PLAN FOR D/C HOME WITH HOSPICE TODAY. WILL GIVE REPORT TO ONCOMING RN.
[2025-02-28] MEDS ORDERED: Acetaminophen 650 MG Supp PR PRN (10:00)
[2025-02-28] MEDS ORDERED: ACET120S PR (10:24)
[2025-02-28] MEDS ORDERED: ATROPINE SULFATE2 M1 SL (10:25)
[2025-02-28] MEDS ORDERED: MORP20L SL (10:33)
[2025-02-28] MEDS ORDERED: TRANSDERM-SCOP1 EA13 TD (10:33)
[2025-02-28] MEDS ORDERED: LORA.5 PO (10:34)
--- NOTE | 2025-02-28 15:30 | NUR ---
ASSESSED PATIENT, REPOSITIONED, WARM TO THE TOUCH. ADDED LA TYLONEL AND REQUESTED BEDSIDE RN TO TAKE TEMP AND ADMINISTER. PHONE CALL TO PATIENTS DAUGHTER EVA WITH [employer]. ANSWERED QUESTIONS ABOUT HOSPICE, FEEDING PROTOCOLS. EXPLAINED WHY SWAPNIL WAS NOT RECIEVING TUBE FEEDINGS. PROVIDED EMOTIONAL SUPPORT AND DISCUSSED IF VIKKI SHOULD COME VISIT AGAIN.
== END 2025-02-28 12:45 | disposition hospice, home (50) | DRG 286 ==
LOC: ER 12:53 → EDBD 12:54 → ICUE 12:54 → SURS 15:51 → ICUE 15:52 → SURS 02-27 00:54
PROVIDERS: Family Medicine; Internal Medicine; Internal Medicine Critical Care Medicine; Student in an Organized Health Care Education/Training Program; ADMIT Internal Medicine
PROC: 4A023N7 Measurement of Cardiac Sampling and Pressure, Left Heart, Percutaneous Approach (ICD-10-PCS; principal; 2025-02-22)
PROC: 0BH17EZ Insertion of Endotracheal Airway into Trachea, Via Natural or Artificial Opening (ICD-10-PCS; 2025-02-22)
PROC: 5A1945Z Respiratory Ventilation, 24-96 Consecutive Hours (ICD-10-PCS; 2025-02-22)
PROC: 0DH67UZ Insertion of Feeding Device into Stomach, Via Natural or Artificial Opening (ICD-10-PCS; 2025-02-22)
PROC: 3E0G76Z Introduction of Nutritional Substance into Upper GI, Via Natural or Artificial Opening (ICD-10-PCS; 2025-02-22)
PROC: B2111ZZ Fluoroscopy of Multiple Coronary Arteries using Low Osmolar Contrast (ICD-10-PCS; 2025-02-22)
DX: I49.01 Ventricular fibrillation (principal); G92.8 Other toxic encephalopathy; I50.43 Acute on chronic combined systolic (congestive) and diastolic (congestive) heart failure; J69.0 Pneumonitis due to inhalation of food and vomit; J96.01 Acute respiratory failure with hypoxia; E87.20 Acidosis, unspecified; N17.9 Acute kidney failure, unspecified; G93.1 Anoxic brain damage, not elsewhere classified; Z66 Do not resuscitate; Z51.5 Encounter for palliative care; I46.2 Cardiac arrest due to underlying cardiac condition; I44.7 Left bundle-branch block, unspecified; I44.0 Atrioventricular block, first degree; E87.6 Hypokalemia; I25.10 Atherosclerotic heart disease of native coronary artery without angina pectoris; N18.31 Chronic kidney disease, stage 3a; E03.9 Hypothyroidism, unspecified; N40.0 Benign prostatic hyperplasia without lower urinary tract symptoms; F03.90 Unspecified dementia, unspecified severity, without behavioral disturbance, psychotic disturbance, mood disturbance, and anxiety; E78.5 Hyperlipidemia, unspecified; E11.65 Type 2 diabetes mellitus with hyperglycemia; E11.22 Type 2 diabetes mellitus with diabetic chronic kidney disease; I48.0 Paroxysmal atrial fibrillation; R25.1 Tremor, unspecified; I35.0 Nonrheumatic aortic (valve) stenosis; Z95.5 Presence of coronary angioplasty implant and graft; Z78.1 Physical restraint status
CPT/HCPCS: 0241U; 0528U; 31500; 36415; 51702; 70450; 71045; 71260; 72125; 74177; 76937; 80047; 80048; 80053; 80320; 81001; 82803; 82947; 83605; 83690; 83735; 83880; 84100; 84484; 85014; 85025; 85610; 85730; 87040; 87070; 87205; 93005; 93010; 93306; 93458; 94002; 94003; 94762; 95819; 99291-25; A9270; C1769; C1887; C1894; J0295; J0461; J1644; J1815; J1940; J2060; J2250; J2371; J2470; J2704; J3010; J7030; J7050; Q9967